=== PATIENT | male | born 1970 | race Caucasian/White ===

== ENCOUNTER 2017-02-13 13:20 | Emergency (ER) | payer BC ==
--- NOTE | 2017-02-13 15:11 | UC ---
Upper Extremity HPI - HPI Summary HPI Summary: 46 yo male with injury to L elbow at work ~ 3 weeks ago after moving a table. has had continued pain, worse with lifting, pulling. has been trying alleve twice daily and using yanet wraps without benefit. no other injuries, no trauma.. minimal swelling, no bruising. meds- statin, prozac, beta kishan. - History of Current Complaint Chief Complaint: UCUpperExtremity Stated Complaint: ELBOW INJURY Time Seen by Provider: 02/13/17 14:55 Hx Obtained From: Patient ?: No Onset/Duration: Sudden Onset, Lasting Weeks - 3 weeks Severity Initially: Moderate Severity Currently: Moderate Location Of Pain: Is Discrete @ - left inner elbows Character: Sharp, Aching, Throbbing Aggravating Factor(s): Movement, Lifting, Adduction Alleviating Factor(s): Compression, Rest - Allergies/Home Medications Allergies/Adverse Reactions: Allergies Allergy/AdvReac Type Severity Reaction Status Date / Time Latex Allergy Rash Verified 02/13/17 13:29 PMH/Surg Hx/FS Hx/Imm Hx Previously Healthy: Yes - Surgical History Surgical History: Yes Surgery Procedure, Year, and Place: APPENDECTOMY, 1983, [facility] - Family History Known Family History: Positive: Unknown - Social History Alcohol Use: Occasionally Substance Use Type: None Smoking Status (MU): Former Smoker Type: Cigarettes Amount Used/How Often: 1/2 PACK A DAY Have You Smoked in the Last Year: Yes When Did the Patient Quit Smoking/Using Tobacco: 2 yrs - Immunization History Most Recent Influenza Vaccination: UNKNOWN Review of Systems Musculoskeletal: Arthralgia, Decreased ROM, Myalgia All Other Systems Reviewed And Are Negative: Yes Physical Exam Triage Information Reviewed: Yes Appearance: Well-Appearing, No Pain Distress, Well-Nourished Vital Signs: Initial Vital Signs Temp 98.9 F 02/13/17 13:26 Pulse 76 02/13/17 13:26 Resp 18 02/13/17 13:26 BP 152/80 02/13/17 13:26 Pulse Ox 98 02/13/17 13:26 Vital Signs Reviewed: Yes Musculoskeletal: Positive: ROM Intact, Other: - L elbow tenderness with ADD passive and against resistence. + tenderness over BB tendon. 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 rad/ ulnar pulses 2+ L sided. sensation grossly intact. Minimal tenderness over biceps. Upper Extremity Course/Dx - Course Course Of Treatment: tendosynovisitis, medrol dose pack as patient has treated conserviatively. Naproxyn. Follow up wtih ortho if no improvement - Differential Dx/Diagnosis Differential Diagnosis/HQI/PQRI: Burn, Laceration, Strain, Sprain Provider Diagnoses: tendosynovitis Discharge - Discharge Plan Condition: Good Disposition: HOME Prescriptions: Methylprednisolone [Medrol Dosepak 4 MG*] 0 mg PO .SEE [employer] INSTRUCTION #1 packet Naproxen [Naprosyn 500 mg] 500 mg PO BID PRN #1 tab PRN Reason: Pain Patient Education Materials: Tenosynovitis (ED) Forms: *School Release, *Work Release Referrals: Irma Valiente MD [Primary Care Provider] - Additional Instructions: - REst, ice x 2-3 days - Follow up with orthopedist if no improvement
[2017-02-13 15:42] VITALS: BP 148/82
== END 2017-02-13 15:42 | disposition home or self-care (01) ==
LOC: UCEAST 13:20
DX: S53.402A Unspecified sprain of left elbow, initial encounter (principal); X50.0XXA Overexertion from strenuous movement or load, initial encounter; Y93.89 Activity, other specified; Y92.9 Unspecified place or not applicable; Y99.0 Civilian activity done for income or pay; Z87.891 Personal history of nicotine dependence
CPT/HCPCS: 99212; G0463